=== PATIENT | male | born 1985 | race African-American/Black ===

== ENCOUNTER 2018-09-12 08:37 | Emergency (ER) | payer MEDICAID ==
[~2018-09-12] VITALS: Ht 188 cm; Wt 90.0 kg
[2018-09-12] MEDS ORDERED: LORAZEPAM 0.5MG TABLET PO ONE (12:30)
[2018-09-12] MEDS ORDERED: IBUPROFEN 800MG TABLET PO ONE (12:30)
[2018-09-12 14:38] VITALS: BP 142/92
== END 2018-09-12 15:12 | disposition home or self-care (01) ==
LOC: ER 08:51
DX: S60.222A Contusion of left hand, initial encounter (principal); F41.9 Anxiety disorder, unspecified; J06.9 Acute upper respiratory infection, unspecified; F32.9 Major depressive disorder, single episode, unspecified; F17.200 Nicotine dependence, unspecified, uncomplicated; Z91.041 Radiographic dye allergy status; W18.39XA Other fall on same level, initial encounter; Y93.61 Activity, american tackle football; Y92.321 Football field as the place of occurrence of the external cause; Y99.8 Other external cause status
CPT/HCPCS: 71045; 73130; 99284

== ENCOUNTER 2018-09-16 09:18 | Emergency (ER) | payer MEDICAID ==
[~2018-09-16] VITALS: Ht 190.5 cm; Wt 92.0 kg
[2018-09-16] MEDS ORDERED: IBUPROFEN 600MG TABLET PO ONE (11:00)
[2018-09-16 13:13] LABS: CLARITY URINE CLEAR (CLEAR); COLOR URINE YELLOW (YELLOW); KETONES URINE 2+ (NEGATIVE); LEUKOCYTE ESTERASE URINE NEGATIVE (NEGATIVE); NITRITE URINE NEGATIVE (NEGATIVE); OCCULT BLOOD URINE NEGATIVE (NEGATIVE); PROTEIN URINE NEGATIVE (NEGATIVE); SPECIFIC GRAVITY URINE 1.014 (1.005-1.030)
[2018-09-16 13:28] LABS: *AMPHETAMINES SCREEN URINE NEGATIVE (NEGATIVE); *BARBITURATES SCREEN URINE NEGATIVE (NEGATIVE); *BENZODIAZEPINES SCREEN URINE NEGATIVE (NEGATIVE); *COCAINE SCREEN URINE NEGATIVE (NEGATIVE); METHADONE URINE SCREEN NEGATIVE (NEGATIVE); OPIATES URINE SCREEN NEGATIVE (NEGATIVE)
[2018-09-16 13:29] LABS: CANNABINOID URINE SCREEN NEGATIVE (NEGATIVE); PHENCYCLIDINE URINE SCREEN NEGATIVE (NEGATIVE)
[2018-09-16] MEDS ORDERED: LORAZEPAM 2MG/ML CPJ IM STA (17:11)
[2018-09-16] MEDS ORDERED: HALOPERIDOL LACTATE 5MG/ML VIAL IM STA (17:11)
[2018-09-16 19:07] LABS: BASOPHILS % 0.4 % (0.0-2.0); EOSINOPHILS % 0.9 % (0.0-5.0); HEMATOCRIT. 45.7 % (42.0-52.0); HEMOGLOBIN. 15.2 g/dL (14.0-18.0); LYMPHOCYTES % 22.5 % (20.0-50.0); MEAN CORPUSCULAR HEMOGLOBIN 29.2 pg (28.0-32.0); MEAN CORPUSCULAR VOLUME 87.9 fL (80.0-94.0); MEAN PLATELET VOLUME 8.2 fl (7.4-10.4); MONOCYTES % 8.3 % (2.0-8.0); NEUTROPHILS % 67.9 % (40.0-76.0); PLATELET 312 x1000/uL (130-400); RED CELL DISTRIBUTION WIDTH 13.3 % (11.6-14.6)
[2018-09-16 19:20] LABS: CHLORIDE 104 mEq/L (98-107)
[2018-09-16 19:27] LABS: ETHANOL BLOOD < 10 mg/dL
[2018-09-17] MEDS ORDERED: OLANZAPINE 5MG TABLET ODT PO ONE (07:00)
[2018-09-17 10:26] VITALS: BP 158/105
== END 2018-09-17 12:00 | disposition home or self-care (01) ==
LOC: ER 09:22
DX: S53.402A Unspecified sprain of left elbow, initial encounter (principal); S53.401A Unspecified sprain of right elbow, initial encounter; Z91.041 Radiographic dye allergy status; X83.8XXA Intentional self-harm by other specified means, initial encounter; Y93.89 Activity, other specified; Y92.89 Other specified places as the place of occurrence of the external cause; Y99.8 Other external cause status
CPT/HCPCS: 36415; 80053; 80305; 81003; 85025; 87186; 96372; 99285; J1630; J2060; Z7610

== ENCOUNTER 2018-09-20 05:05 | Emergency (ER) | payer MEDICAID ==
[~2018-09-20] VITALS: Ht 188 cm; Wt 100.0 kg
[2018-09-20 08:45] VITALS: BP 147/85
== END 2018-09-20 09:05 | disposition home or self-care (01) ==
LOC: ER 05:05
DX: S90.822A Blister (nonthermal), left foot, initial encounter (principal); S90.821A Blister (nonthermal), right foot, initial encounter; B35.3 Tinea pedis; X58.XXXA Exposure to other specified factors, initial encounter; Y93.9 Activity, unspecified; Y92.9 Unspecified place or not applicable
CPT/HCPCS: 73630; 99283

== ENCOUNTER 2018-09-27 05:47 | Emergency (ER) | payer MEDICAID ==
[~2018-09-27] VITALS: Ht 188 cm; Wt 100.0 kg
[2018-09-27] MEDS ORDERED: HALOPERIDOL LACTATE 5MG/ML VIAL IM ONE (09:15)
[2018-09-27] MEDS ORDERED: LORAZEPAM 0.5MG TABLET PO ONE (09:15)
[2018-09-27 09:21] LABS: HEMATOCRIT. 46.8 % (42.0-52.0); HEMOGLOBIN. 15.3 g/dL (14.0-18.0); MEAN CORPUSCULAR HEMOGLOBIN 29.5 pg (28.0-32.0); MEAN CORPUSCULAR VOLUME 90.4 fL (80.0-94.0); MEAN PLATELET VOLUME 8.1 fl (7.4-10.4); PLATELET 352 x1000/uL (130-400); RED BLOOD CELL COUNT 5.18 mill/uL (4.7-6.1); RED CELL DISTRIBUTION WIDTH 13.7 % (11.6-14.6)
[2018-09-27 09:22] LABS: CHLORIDE 107 mEq/L (98-107)
[2018-09-27 09:26] LABS: ETHANOL BLOOD < 10 mg/dL
[2018-09-27 10:02] LABS: PLATELET ESTIMATE NORMAL
[2018-09-27 12:31] LABS: CLARITY URINE CLEAR (CLEAR); COLOR URINE YELLOW (YELLOW); KETONES URINE TRACE (NEGATIVE); LEUKOCYTE ESTERASE URINE NEGATIVE (NEGATIVE); NITRITE URINE NEGATIVE (NEGATIVE); OCCULT BLOOD URINE NEGATIVE (NEGATIVE); PH URINE 6.5 (4.5-8.0); PROTEIN URINE NEGATIVE (NEGATIVE); SPECIFIC GRAVITY URINE 1.033 (1.005-1.030)
[2018-09-27 12:52] LABS: *AMPHETAMINES SCREEN URINE NEGATIVE (NEGATIVE); *BARBITURATES SCREEN URINE NEGATIVE (NEGATIVE); *BENZODIAZEPINES SCREEN URINE NEGATIVE (NEGATIVE); *COCAINE SCREEN URINE NEGATIVE (NEGATIVE); CANNABINOID URINE SCREEN PRESUMTIVE POSITIVE (NEGATIVE); METHADONE URINE SCREEN NEGATIVE (NEGATIVE); OPIATES URINE SCREEN PRESUMTIVE POSITIVE (NEGATIVE); PHENCYCLIDINE URINE SCREEN NEGATIVE (NEGATIVE)
[2018-09-27] MEDS ORDERED: QUETIAPINE FUMARATE 50MG TABLET PO STA (15:47)
[2018-09-27] MEDS ORDERED: LORAZEPAM 1MG TABLET PO ONE (16:00)
[2018-09-27] MEDS ORDERED: LORAZEPAM 2MG/ML CPJ IM STA (18:50)
[2018-09-27] MEDS ORDERED: OLANZAPINE 10 MG/VIAL IM ONE (19:00)
[2018-09-28] MEDS ORDERED: LORAZEPAM 1MG TABLET PO ONE ×2 (00:45→12:15)
[2018-09-28] MEDS ORDERED: OLANZAPINE 10 MG/VIAL IM ONE (00:45)
[2018-09-28] MEDS ORDERED: ZIPRASIDONE HCL 40MG CAPSULE PO ONE (06:00)
[2018-09-28 15:17] VITALS: BP 136/81
== END 2018-09-28 15:20 ==
LOC: ER 05:47
DX: R45.851 Suicidal ideations (principal); F32.3 Major depressive disorder, single episode, severe with psychotic features; R45.1 Restlessness and agitation; Z78.1 Physical restraint status; R03.0 Elevated blood-pressure reading, without diagnosis of hypertension; Z91.041 Radiographic dye allergy status
CPT/HCPCS: 36415; 80053; 80305; 80307; 80329; 81003; 85025; 87186; 96372; 99285; J1630; J2060; J3490; Z7610

== ENCOUNTER 2018-10-13 23:05 | Emergency (ER) | payer MEDICAID ==
[~2018-10-13] VITALS: Ht 182.9 cm; Wt 78.0 kg
[2018-10-14] MEDS ORDERED: SODIUM CHLORIDE 0.9% 1,000 ML IV ONE (00:17)
[2018-10-14] MEDS ORDERED: ACETAMINOPHEN 325MG TABLET PO STA (00:17)
[2018-10-14 00:39] LABS: EOSINOPHILS % 1.9 % (0.0-5.0); HEMATOCRIT. 43.4 % (42.0-52.0); HEMOGLOBIN. 14.5 g/dL (14.0-18.0); LYMPHOCYTES % 18.6 % (20.0-50.0); MEAN CORPUSCULAR HEMOGLOBIN 29.5 pg (28.0-32.0); MEAN CORPUSCULAR VOLUME 88.5 fL (80.0-94.0); MEAN PLATELET VOLUME 8.6 fl (7.4-10.4); MONOCYTES % 11.4 % (2.0-8.0); NEUTROPHILS % 67.1 % (40.0-76.0); PLATELET 388 x1000/uL (130-400); RED CELL DISTRIBUTION WIDTH 13.4 % (11.6-14.6)
[2018-10-14 00:43] LABS: CHLORIDE 106 mEq/L (98-107)
[2018-10-14 00:47] LABS: D-DIMER 2.2 mg/L FEU (<0.50); INR 1.1; PROTHROMBIN TIME 10.9 sec (9.1-11.1)
[2018-10-14 01:18] LABS: CLARITY URINE CLEAR (CLEAR); COLOR URINE YELLOW (YELLOW); KETONES URINE NEGATIVE (NEGATIVE); LEUKOCYTE ESTERASE URINE NEGATIVE (NEGATIVE); NITRITE URINE NEGATIVE (NEGATIVE); OCCULT BLOOD URINE NEGATIVE (NEGATIVE); PROTEIN URINE NEGATIVE (NEGATIVE); SPECIFIC GRAVITY URINE 1.014 (1.005-1.030)
[2018-10-14 01:32] LABS: *AMPHETAMINES SCREEN URINE NEGATIVE (NEGATIVE); *BARBITURATES SCREEN URINE NEGATIVE (NEGATIVE); *BENZODIAZEPINES SCREEN URINE PRESUMTIVE POSITIVE (NEGATIVE)
[2018-10-14 01:33] LABS: *COCAINE SCREEN URINE NEGATIVE (NEGATIVE); CANNABINOID URINE SCREEN NEGATIVE (NEGATIVE); METHADONE URINE SCREEN NEGATIVE (NEGATIVE); OPIATES URINE SCREEN PRESUMTIVE POSITIVE (NEGATIVE); PHENCYCLIDINE URINE SCREEN NEGATIVE (NEGATIVE)
[2018-10-14 08:30] VITALS: BP 132/62
== END 2018-10-14 08:33 | disposition home or self-care (01) ==
LOC: ER 23:05
DX: R07.89 Other chest pain (principal); R03.0 Elevated blood-pressure reading, without diagnosis of hypertension; F99 Mental disorder, not otherwise specified
CPT/HCPCS: 36415; 70450; 71045; 78582; 80053; 80305; 81003; 84484; 85025; 85379; 85610; 93005; 96360; 96361; 99284; A9540; A9558; J7030; Z7610

== ENCOUNTER 2018-10-23 13:53 | Emergency (ER) | payer MEDICAID ==
[~2018-10-23] VITALS: Ht 188 cm; Wt 110.0 kg
[2018-10-23] MEDS ORDERED: LORAZEPAM 2MG/ML CPJ IV ONE (16:15)
[2018-10-23 17:03] LABS: BASOPHILS % 0.4 % (0.0-2.0); EOSINOPHILS % 0.8 % (0.0-5.0); HEMATOCRIT. 45.1 % (42.0-52.0); HEMOGLOBIN. 14.7 g/dL (14.0-18.0); LYMPHOCYTES % 18.7 % (20.0-50.0); MEAN CORPUSCULAR HEMOGLOBIN 28.9 pg (28.0-32.0); MEAN CORPUSCULAR VOLUME 88.9 fL (80.0-94.0); MONOCYTES % 7.4 % (2.0-8.0); NEUTROPHILS % 72.7 % (40.0-76.0); PLATELET 417 x1000/uL (130-400); RED BLOOD CELL COUNT 5.07 mill/uL (4.7-6.1); RED CELL DISTRIBUTION WIDTH 13.4 % (11.6-14.6)
[2018-10-23 17:09] LABS: CHLORIDE 103 mEq/L (98-107)
[2018-10-23 17:13] LABS: ETHANOL BLOOD < 10 mg/dL
[2018-10-23 17:17] LABS: CLARITY URINE CLEAR (CLEAR); COLOR URINE YELLOW (YELLOW); KETONES URINE NEGATIVE (NEGATIVE); LEUKOCYTE ESTERASE URINE NEGATIVE (NEGATIVE); NITRITE URINE NEGATIVE (NEGATIVE); OCCULT BLOOD URINE NEGATIVE (NEGATIVE); PH URINE 6.5 (4.5-8.0); PROTEIN URINE NEGATIVE (NEGATIVE); SPECIFIC GRAVITY URINE 1.006 (1.005-1.030); UROBILINOGEN URINE 0.2 E.U./dL (0.2-1.0)
[2018-10-23 17:28] LABS: *AMPHETAMINES SCREEN URINE NEGATIVE (NEGATIVE); *BARBITURATES SCREEN URINE NEGATIVE (NEGATIVE); CANNABINOID URINE SCREEN PRESUMTIVE POSITIVE (NEGATIVE); PHENCYCLIDINE URINE SCREEN NEGATIVE (NEGATIVE)
[2018-10-23 17:29] LABS: *BENZODIAZEPINES SCREEN URINE NEGATIVE (NEGATIVE); *COCAINE SCREEN URINE NEGATIVE (NEGATIVE); METHADONE URINE SCREEN NEGATIVE (NEGATIVE); OPIATES URINE SCREEN NEGATIVE (NEGATIVE)
[2018-10-23] MEDS ORDERED: DIVALPROEX SODIUM 125MG EC TABLET PO ONE (18:15)
[2018-10-23] MEDS ORDERED: LORAZEPAM 1MG TABLET PO ONE (23:15)
[2018-10-23] MEDS ORDERED: OLANZAPINE 5MG TABLET ODT PO ONE (23:15)
[2018-10-24] MEDS ORDERED: LORAZEPAM 1MG TABLET PO ONE (12:00)
[2018-10-24] MEDS ORDERED: OLANZAPINE 5MG TABLET ODT PO ONE (12:00)
[2018-10-24 12:50] VITALS: BP 118/84
== END 2018-10-24 13:35 | disposition home or self-care (01) ==
LOC: ER 14:03
DX: F41.9 Anxiety disorder, unspecified (principal); F32.9 Major depressive disorder, single episode, unspecified; R45.851 Suicidal ideations; F20.9 Schizophrenia, unspecified; F12.10 Cannabis abuse, uncomplicated; Z87.891 Personal history of nicotine dependence; Z91.041 Radiographic dye allergy status
CPT/HCPCS: 36415; 71045; 80053; 80165; 80305; 80320; 81003; 84443; 85025; 93005; 96374; 99284; J2060; Z7610; G0480

== ENCOUNTER 2019-07-16 10:02 | Emergency (ER) | payer MEDICAID ==
[~2019-07-16] VITALS: Ht 182.9 cm; Wt 100.0 kg
[2019-07-16 10:05] VITALS: BP 148/88
== END 2019-07-16 10:42 | disposition left against medical advice (07) ==
LOC: ER 10:02
DX: F12.188 Cannabis abuse with other cannabis-induced disorder (principal); R55 Syncope and collapse; F91.8 Other conduct disorders; Z86.59 Personal history of other mental and behavioral disorders
CPT/HCPCS: 99283

== ENCOUNTER 2025-05-19 19:49 | Emergency (ER) | payer SELFPAY ==
[~2025-05-19] VITALS: Ht 188 cm; Wt 103.0 kg
[2025-05-19 20:46] VITALS: O2SAT 99
[2025-05-20 00:19] VITALS: TEMP 36.9
[2025-05-20] MEDS ORDERED: QUET300T2 MT (03:04)
[2025-05-20] MEDS ORDERED: DIVA-156 MT (03:04)
[2025-05-20 03:26] VITALS: BP 126/95; PULSE 101; RESP 19; O2SAT 97
== END 2025-05-20 03:30 | disposition home or self-care (01) ==
LOC: ER 19:49
DX: F31.9 Bipolar disorder, unspecified (principal); Z76.0 Encounter for issue of repeat prescription; Z79.899 Other long term (current) drug therapy; Z88.8 Allergy status to other drugs, medicaments and biological substances
CPT/HCPCS: 99282

== ENCOUNTER 2025-06-05 19:05 | Emergency (ER) | payer MEDICAID ==
[~2025-06-05] VITALS: Ht 185.4 cm; Wt 102.0 kg
[~2025-06-05 19:05] MED LIST: DIVA-156 MT; QUET300T2 MT
[2025-06-05 19:12] VITALS: O2SAT 99
[2025-06-05] MEDS ORDERED: QUET300T5 MT (20:46)
[2025-06-05] MEDS ORDERED: DIVA-73 MT (20:46)
[2025-06-05 21:12] VITALS: BP 139/89; PULSE 89; RESP 16; TEMP 36.8; O2SAT 98
== END 2025-06-05 21:13 | disposition home or self-care (01) ==
LOC: ER 19:05
DX: G40.909 Epilepsy, unspecified, not intractable, without status epilepticus (principal); F31.9 Bipolar disorder, unspecified; Z76.0 Encounter for issue of repeat prescription; Z88.8 Allergy status to other drugs, medicaments and biological substances; Z79.899 Other long term (current) drug therapy
CPT/HCPCS: 99282

== ENCOUNTER 2025-06-11 21:37 | Emergency (ER) | payer MEDICAID ==
[~2025-06-11] VITALS: Ht 185.4 cm; Wt 102.0 kg
[~2025-06-11 21:37] MED LIST changes: +DIVA-73 MT; +QUET300T5 MT
[2025-06-11 21:56] VITALS: O2SAT 96
[2025-06-12] MEDS: CYCLOBENZAPRINE 10MG TABLET PO ONE (01:24)
[2025-06-12] MEDS: KETOROLAC 30MG/ML VIAL IM ONE (01:28)
[2025-06-12] MEDS ORDERED: IBUP-1455 MT (01:36)
[2025-06-12 02:52] VITALS: BP 118/71; PULSE 100; RESP 19; TEMP 36.8; O2SAT 96
== END 2025-06-12 02:53 | disposition home or self-care (01) ==
LOC: ER 21:37
DX: S90.02XA Contusion of left ankle, initial encounter (principal); I10 Essential (primary) hypertension; E11.9 Type 2 diabetes mellitus without complications; F41.9 Anxiety disorder, unspecified; F12.90 Cannabis use, unspecified, uncomplicated; Z79.899 Other long term (current) drug therapy; Z88.8 Allergy status to other drugs, medicaments and biological substances; X50.1XXA Overexertion from prolonged static or awkward postures, initial encounter; Y93.67 Activity, basketball; Y92.89 Other specified places as the place of occurrence of the external cause; Y99.8 Other external cause status
CPT/HCPCS: 99283; 29515; 73610; 96372; J1885; A6449